=== PATIENT | female | born 1985 | race African-American/Black ===

== ENCOUNTER 2016-11-15 15:37 | Emergency (ER) | payer SELFPAY ==
[~2016-11-15] VITALS: Ht 162.6 cm; Wt 63.5 kg
[~2016-11-15 15:37] MED LIST: TRAM50TA PO
[2016-11-15 15:45] VITALS: BP 126/76
--- NOTE | 2016-11-15 16:07 | PHYS DOC ---
Past Medical History Past Medical History: Migraines Past Surgical History: No Surgical History Alcohol Use: None Drug Use: Marijuana Adult General Chief Complaint Chief Complaint: HEADACHE HPI HPI Patient is a 31 year old female presents to the emergency department with a 12 hour history of headache. She states it awakened her from sleep. It is typical of her migraine headaches and that it is global in nature. Patient states she took hydrocodone liquid, unsure of amount, that was a prescription from her friend. Patient has no visual disturbance, denies nausea, vomiting. She denies fever. She denies neck pain. Chest chest pain. Review of Systems Review of Systems Constitutional: Denies fever or chills [] Eyes: Denies change in visual acuity, redness, or eye pain [] HENT: Denies nasal congestion or sore throat [] Respiratory: Denies cough or shortness of breath [] Cardiovascular: No additional information not addressed in HPI [] GI: Denies abdominal pain, nausea, vomiting, bloody stools or diarrhea [] : Denies dysuria or hematuria [] Musculoskeletal: Denies back pain or joint pain [] Integument: Denies rash or skin lesions [] Neurologic: Headache without focal weakness or sensory change Endocrine: Denies polyuria or polydipsia [] Current Medications Current Medications Current Medications Medications (Trade) Dose Ordered Sig/Hodan Start Time Stop Time Status Last Admin Dose Admin Diphenhydramine HCl (Benadryl) 50 mg 1X ONCE 11/15/16 16:30 11/15/16 16:31 DC 11/15/16 16:11 50 MG Ketorolac Tromethamine (Toradol Im) 60 mg 1X ONCE 11/15/16 16:30 11/15/16 16:31 DC 11/15/16 16:11 60 MG Promethazine HCl (Phenergan Im) 25 mg 1X ONCE 11/15/16 16:30 11/15/16 16:31 DC 11/15/16 16:11 25 MG Allergies Allergies Allergies Coded Allergies Type Severity Reaction Last Updated Verified No Known Drug Allergies 11/19/14 No Physical Exam Physical Exam Constitutional: Well developed, well nourished, no acute distress, non-toxic appearance. [] HENT: Normocephalic, atraumatic, bilateral external ears normal, oropharynx moist, no oral exudates, nose normal. [] Eyes: PERRLA, EOMI, conjunctiva normal, no discharge, fundoscopic exam benign. [ ] Neck: Normal range of motion, no tenderness, supple, no stridor, no meningeal signs [] Cardiovascular:Heart rate regular rhythm, no murmur [] Lungs & Thorax: Bilateral breath sounds clear to auscultation [] Skin: Warm, dry, no erythema, no rash. [] Back: No tenderness, no CVA tenderness. [] Neurologic: Alert and oriented X 3, normal motor function, normal sensory function, no focal deficits noted. [] EKG EKG [] Radiology/Procedures Radiology/Procedures [] Course & Med Decision Making Course & Med Decision Making The patient presented to the emergency department with headache. The patient is now resting comfortably and feels better, is alert, talkative, interactive and in no distress. Patient appears well and is able tolerate by mouth fluids. Repeat examination is unremarkable and benign. The patient is neurologically intact, has a normal mental status and is ambulating in the ED. history and exam in the patient's current condition do not suggest meningitis, stroke, sepsis, subarachnoid hemorrhage, intracranial bleeding, encephalitis, temporal arteritis or other significant pathology toward further testing, continued ED treatment, admission, neurologic consultation or other specialist evaluation at this point. I'll signs have been stable. The patient's condition is stable and appropriate for discharge. The patient will pursue further outpatient evaluation with primary care physician or other designated or consulting physician is indicated in the discharge instructions. Pertinent Labs and Imaging studies reviewed. (See chart for details) [] Dragon Disclaimer Dragon Disclaimer This electronic medical record was generated, in whole or in part, using a voice recognition dictation system. Departure Departure Impression: Primary Impression: Headache Disposition: 01 HOME, SELF-CARE Condition: STABLE Referrals: CHANG VICTOR MD (PCP) Patient Instructions: General Headache Without Cause Additional Instructions: Follow-up with your primary care provider in one to 2 days. Return to the emergency Department for new symptoms or concerns. Problem Qualifiers Primary Impression: Headache Headache type: other headache syndrome Qualified Codes: G44.89 - Other headache syndrome CHINYERE DURAN APRN Nov 15, 2016 16:07
[2016-11-15] MEDS ORDERED: PROMETHAZINE IM 25 MG/ML VIAL IM ONE (16:30)
[2016-11-15] MEDS ORDERED: diphenhydrAMINE 50 MG/ML VIAL IM ONE (16:30)
[2016-11-15] MEDS ORDERED: KETOROLAC TROMETHAMINE 60 MG/2 ML INJ. IM ONE (16:30)
== END 2016-11-15 16:50 | disposition home or self-care (01) ==
LOC: ER 15:37
DX: G44.89 Other headache syndrome (principal); G43.909 Migraine, unspecified, not intractable, without status migrainosus; F12.10 Cannabis abuse, uncomplicated
CPT/HCPCS: 96372; 99284; J1200; J1885; J2550

== ENCOUNTER 2017-01-11 19:15 | Emergency (ER) | payer SELFPAY ==
[~2017-01-11] VITALS: Ht 167.6 cm; Wt 61.2 kg
--- NOTE | 2017-01-11 19:34 | PHYS DOC ---
Past Medical History Past Medical History: No Pertinent History, Migraines Past Surgical History: No Surgical History Alcohol Use: None Drug Use: Marijuana Adult General Chief Complaint Chief Complaint: ANKLE PROBLEM HPI HPI Patient is a 31 year old female who presents with moderate left lateral ankle pain that began this evening. Patient states she was stepping off a curb and rolled her left ankle externally. Patient states the pain is worse on weight bearing. Review of Systems Review of Systems Constitutional: Denies fever or chills [] Musculoskeletal:left lateral ankle pain Integument: Denies rash or skin lesions [] Neurologic: Denies headache, focal weakness or sensory changes [] Current Medications Current Medications Current Medications Medications (Trade) Dose Ordered Sig/Hodan Start Time Stop Time Status Last Admin Dose Admin Morphine Sulfate 5 mg 1X ONCE 01/11/17 20:45 01/11/17 20:46 DC 01/11/17 20:46 5 MG Allergies Allergies Allergies Coded Allergies Type Severity Reaction Last Updated Verified No Known Drug Allergies 11/19/14 No Physical Exam Physical Exam Constitutional: Well developed, well nourished, no acute distress, non-toxic appearance. [] Skin: Warm, dry, no erythema, no rash. [] Back: No tenderness, no CVA tenderness. [] Extremities: Left ankle with moderate soft tissue swelling medially as well as laterally. Tenderness on palpation of the lateral and medial left ankle. Full passive range of motion to the left ankle. +2 left pedal pulse. Cap refill less than 2 seconds the left toes Neurologic: Alert and oriented X 3, normal motor function, normal sensory function, no focal deficits noted. [] Psychologic: Affect normal, judgement normal, mood normal. [] Current Patient Data Vital Signs Vital Signs Date Time Temp Pulse Resp B/P (MAP) Pulse Ox O2 Delivery O2 Flow Rate FiO2 01/11/17 20:00 Room Air 01/11/17 19:27 98.4 77 18 96 98.4 EKG EKG [] Radiology/Procedures Radiology/Procedures []PROCEDURE: ANKLE LEFT 3V Three-view left ankle dated 01/11/2017. No comparison available. Clinical indication: Pain after injury. FINDINGS: 3 views left ankle show an oblique fracture through the distal fibula with fracture lines extending to the ankle mortise. There is one half shaft width lateral displacement of the distal fragment. There is also a transverse fracture through the medial malleolus. The talus is subluxed laterally relative to the distal tibia. No definite posterior malleoli or fracture. Diffuse soft tissue swelling. IMPRESSION: Bimalleolar fracture dislocation as described above. Electronically signed by: Jean Pierre Coronel MD (01/11/2017 7:43 PM) [facility] DICTATED and SIGNED BY: JEAN PIERRE CORONEL MD DATE: 01/11/171940 CC: CHANG VICTOR MD; JENY ESCALANTE APRN ~ Impressions: Indication: Left ankle fracture reduction Consent: Consent was obtained. Procedure: The pre-reduction exam showed distal perfusion and neurologic function to be normal.. The patient was placed in the appropriate position. Anesthesia/pain control with intramuscular morphine. Reduction of the left ankle was performed with direct traction. Post reduction films were obtained and revealed satisfactory reduction. A post-reduction exam revealed distal perfusion and neurologic function to be normal. The affected area was immobilized with stirrup and posterior splint The patient tolerated the procedure well. Complications: none. Course & Med Decision Making Course & Med Decision Making Pertinent Labs and Imaging studies reviewed. (See chart for details) Patient is in the ED with left ankle pain after rolling it. Left ankle x-rays interpreted by radiologist were noted for bimalleolar fracture and dislocation. Spoke with Dr. Johnson who requested we ask one of the doctors to reduce patient 's ankle splint it and do post reduction films. Dr. Alvarez took over patient's care. KIM - I took over care of patient and the joint was reduced with satisfactory results and I spoke to Dr. jeremías bach on the phone and he agreed this is reduced satisfactorily. Commended nonweightbearing and to follow in clinic later next week and come back with worsening pain swelling or other general concerns. Dragon Disclaimer Dragon Disclaimer This electronic medical record was generated, in whole or in part, using a voice recognition dictation system. Departure Departure Impression: Primary Impression: Fall from standing Additional Impression: Bimalleolar fracture of left ankle Disposition: HOME, SELF-CARE Condition: STABLE Referrals: CHANG VICTOR MD (PCP) KYM JOHNSON II, MD Call his office on Saturday and follow-up Patient Instructions: Ankle Fracture with [facility] Additional Instructions: You were seen for ankle fractures, follow-up with the provided orthopedic doctor on Saturday. Call his office and get a follow-up appointment. Ice and elevate the extremity. Scripts Ondansetron (ZOFRAN ODT) 4 Mg Tab.rapdis 4 MG PO BID Y for NAUSEA/VOMITING, #14 TAB Prov: MEGAN ALVAREZ DO 01/11/17 Oxycodone/Apap 5-325 (PERCOCET 5-325 MG TABLET) 1 Each Tablet 1 TAB PO PRN Q6HRS Y for PAIN, #30 TAB 0 Refills Prov: MEGAN ALVAREZ DO 01/11/17 Problem Qualifiers Primary Impression: Fall from standing Encounter type: initial encounter Qualified Codes: W19.XXXA - Unspecified fall, initial encounter Additional Impression: Bimalleolar fracture of left ankle Encounter type: initial encounter Fracture type: closed Qualified Codes: S82.842A - Displaced bimalleolar fracture of left lower leg, initial encounter for closed fracture JENY ESCALANTE APRN Jan 11, 2017 19:34 MEGAN ALVAREZ DO Jan 11, 2017 20:55
[2017-01-11] MEDS ORDERED: MORPHINE SULFATE 10 MG/ML VIAL. IM ONE ×2 (19:45→20:45)
--- NOTE | 2017-01-11 19:46 | RAD ---
Three-view left ankle dated 01/11/2017. No comparison available. Clinical indication: Pain after injury. FINDINGS: 3 views left ankle show an oblique fracture through the distal fibula with fracture lines extending to the ankle mortise. There is one half shaft width lateral displacement of the distal fragment. There is also a transverse fracture through the medial malleolus. The talus is subluxed laterally relative to the distal tibia. No definite posterior malleoli or fracture. Diffuse soft tissue swelling. IMPRESSION: Bimalleolar fracture dislocation as described above. Electronically signed by: Jean Pierre Coronel MD (01/11/2017 7:43 PM) [facility]
[2017-01-11 21:00] VITALS: BP 132/85
[2017-01-11] MEDS ORDERED: ONDA4TAB10 PO (21:11)
[2017-01-11] MEDS ORDERED: OXYC-323 PO (21:11)
--- NOTE | 2017-01-12 07:47 | RAD ---
Left ankle radiograph 01/11/2017 at 2040 hours Indication: Post manipulation/reduction Comparison: Left ankle radiograph 01/11/2017 at 1928 hours Technique: 3 views of the left ankle are provided. Findings: Fiberglass cast limits fine osseous detail. There is improved alignment of fractures involving the medial and lateral malleoli. Improved congruence of the ankle mortise. Impression: Interval reduction of medial and lateral malleolar fractures with improved alignment.
== END 2017-01-11 21:26 | disposition home or self-care (01) ==
LOC: ER 19:15
DX: S82.842A Displaced bimalleolar fracture of left lower leg, initial encounter for closed fracture (principal); G43.909 Migraine, unspecified, not intractable, without status migrainosus; W18.39XA Other fall on same level, initial encounter; Y93.89 Activity, other specified; Y92.89 Other specified places as the place of occurrence of the external cause; Y99.8 Other external cause status
CPT/HCPCS: 27810; 73610; 96372; 99284; J2270

== ENCOUNTER 2017-02-04 08:44 | Day surgery (SDC) | payer SELFPAY ==
[~2017-02-04] VITALS: Ht 162.6 cm; Wt 63.5 kg
[~2017-02-04 08:44] MED LIST changes: +BUPIVACAINE MPF 0.5% 30 ML VIAL. ONE; +IBUP-1027 PO; +IV RINGERS,LACTATED 1000ML 1,000 ML IV SCH; +LIDOCAINE 1% PF 2 ML VIAL. ID PRN; +LIDOCAINE 1% PF 30 ML VIAL. ONE; +LIDOCAINE 2% PF Vial for OR 5 ML VIAL. ONE; +ONDA4TAB10 PO; +ONDANSETRON PF 4 MG/2 ML VIAL. IV PRN; +OXYC-323 PO; +PROCHLORPERAZINE 10 MG/2 ML VIAL. IV PRN; +PROPOFOL 20 ML IV ONE; +fentaNYL PF VIAL 100 MCG/2 ML VIAL IV PRN; +fentaNYL PF VIAL 100 MCG/2 ML VIAL ONE
[2017-02-04 09:36] LABS: NEG OBC UR NEG; POS OBC UR POS
--- NOTE | 2017-02-04 09:37 | DISCH ---
DISCHARGE INSTRUCTIONS Condition on Discharge Condition on Discharge: Stable Activity After Discharge Activity Instructions for Disc: Other, see below Bathing Instructions: Shower-keep dressing dry Weight Bearing Status after Di: Non weight bearing Diet after Discharge Diet after Discharge: Regular Wound Incision Care Wound/Incision Care: Ice to area for comfort, Keep wound/cast CDI, Keep wound elevated, Do not change dressing Other wound/incision instructi: leave splint in place Contacting the DR. after DC Call your doctor for: Concerns you may have Follow-Up Follow up with: Michael in 2wks KYM JOHNSON II, MD Feb 04, 2017 09:36
--- NOTE | 2017-02-04 09:38 | PDOC ---
BRIEF OPERATIVE NOTE Date: Feb 04, 2017 Pre-Op Diagnosis Closed Left bimall ankle fracture Post-Op Diagnosis same Procedure Performed ORIF R ankle fracture, bimalleolar Surgeon Michael Nielsen Anesthesia Type: General, Local Blood Loss see op report Complications none KYM JOHNSON II, MD Feb 04, 2017 09:38
[2017-02-04] MEDS ORDERED: SEVOFLURANE 31 TO 60 MINUTES. IH ONE (10:20)
[2017-02-04] MEDS ORDERED: DEXAMETHASONE SOD PHOS 20 MG/5 ML VIAL. ONE (10:20)
[2017-02-04] MEDS ORDERED: ONDANSETRON PF 4 MG/2 ML VIAL. ONE (10:38)
[2017-02-04] MEDS ORDERED: KETOROLAC 30 MG/ML INJ FOR OR. INJ ONE (10:38)
[2017-02-04] MEDS ORDERED: fentaNYL PF VIAL 100 MCG/2 ML VIAL ONE (11:27)
[2017-02-04] MEDS: fentaNYL PF VIAL 100 MCG/2 ML VIAL IV PRN ×2 (11:50→12:09)
--- NOTE | 2017-02-04 12:01 | RAD ---
Indication ORIF of ankle fracture. For members of the department of orthopedic surgery fluoroscopy was provided. 3. Spot fluoroscopic images of the left ankle were obtained. Previously identified fractures have been internally fixed with orthopedic hardware. No unexpected finding is seen. Fluoroscopy time associated with the imaging has been indicated as 39 seconds
[2017-02-04] MEDS: MORPHINE SULFATE 2 MG/ML DISP.SYRIN. IV PRN ×2 (12:02→12:19)
[2017-02-04] MEDS: HYDROmorphone 2 MG/ML VIAL IV PRN ×4 (12:31→13:09)
[2017-02-04] MEDS ORDERED: oxyCODONE/APAP 5/325 1 TAB TABLET ONE (13:10)
[2017-02-04] MEDS ORDERED: oxyCODONE/APAP 5/325 1 TAB TABLET PO ONE (13:15)
--- NOTE | 2017-02-04 13:18 | OP ---
DATE OF SURGERY: 02/04/2017 SURGEON: Reinaldo Johnson M.D. MOLECULAR GENETIC PATHOLOGIST: Kel Nielsen. ANESTHESIA: General plus local. PREOPERATIVE DIAGNOSIS: Closed left bimalleolar ankle fracture dislocation. POSTOPERATIVE DIAGNOSIS: Closed left bimalleolar ankle fracture dislocation. PROCEDURE PERFORMED: Open reduction and internal fixation of the left bimalleolar ankle fracture. COMPONENTS INSERTED: 1. [employer] 5-hole left distal fibula locking plate. 2. A single 4.0 mm cannulated screw from medial malleolus. COMPLICATIONS: None. ESTIMATED BLOOD LOSS: 15 mL. TOURNIQUET TIME: 47 minutes. REASON FOR PROCEDURE: The patient is a very pleasant 31-year-old female who sustained a twisting injury to her ankle, was seen in our Emergency Department and sent to myself for definitive management. Please see my outpatient note for further details. Given the nature of her injury, I had discussion of the risks, benefits and alternatives to proceeding with operative intervention and she elected to proceed. DESCRIPTION OF PROCEDURE: The patient was greeted in the preoperative area by myself, where the correct extremity was marked and verified. She was taken to the operative suite and antibiotics were started en route. Once in the OR, she was transferred gently supine on the OR table and secured to the bed with all pressure points padded. Nonsterile tourniquet taped in place to her left thigh. We had placed a large bump under her left hip. After this, I exsanguinated her extremity with an Esmarch and insufflated the tourniquet to 250 mmHg. We conducted our standard preoperative timeout. We palpated the marked surface anatomy and made a straight lateral incision over her distal fibula and incised the skin with a scalpel and dissected the subcutaneous tissue with Metzenbaum. I identified her distal fibula and used periosteal elevator to remove the periosteum it more fully exposed the fracture site. I used dental pick, small curette and metal tip sucker to debride the fracture site. She had a comminuted piece of her posterolateral distal fibula distal to the fracture site. After debriding the fracture site of early soft callus, I then proceeded to reduce her ankle fracture with combination of internal rotation at her foot and direct pressure over her fracture with assistance of a [id number] reduction clamp. After achieving an adequate reduction, provisionally I placed a plate in this bone and took my x-rays and was happy with the hardware position and fracture alignment. Therefore, I placed a single nonlocking screw proximally in the fracture to hold it in place. I then placed a nonlocking screw distal to the fracture site. I then placed 2 more nonlocking screws proximal to the fracture site. I then placed 2 locking screws distal to the fracture site and traded out my initial nonlocking screw for a locking screw as well. I then directed my attention to making a curvilinear incision over the medial malleolus fractures. I incised the skin with a scalpel and dissected subcutaneous tissue with Metzenbaum until I encountered the fracture site. I used the periosteal elevator to more fully expose the fracture site. I used again a small curette, dental pick and a metal tip sucker to debride the fracture site. I then irrigated out the ankle joint. After this, I used dental pick to help facilitate a better reduction at the fracture and took a couple attempts using the fluoroscopy to guide me and then I advanced a guide pin. After this, I placed another guide pin, but looking at the fracture and orientation, there was not room for 2 screws. I left the second guide pin in place help control rotation, though I just placed one screw. I drilled the near cortex and then measured and placed my screw under hand power. I then took AP, oblique and lateral of her ankle and I was happy with the fracture reduction and hardware position. After this, I performed an external rotation stress test, which was negative. We then irrigated out the incisions and let the tourniquet down. There was some venous bleeding that was cauterized and some oozing from the fracture site, but nothing too great. I then closed the fascia down deep laterally with simple interrupted #1 Vicryl. Inverted interrupted 2-0 was used for subcutaneous tissue medially and laterally. A 2-0 nylon in a mattress fashion was used for skin medially and laterally. Prior to completion of wound closure, all counts were reported correct x 2. No complications. At the conclusion of closing the skin, I injected about 10 mL of local anesthetic mixture into the pippa-incisional areas. The leg was then cleansed and dried and Steri-Strips, Xeroform, sterile gauze and ABD laterally, where I then applied and held in place with a sterile soft roll. We then fashioned a well-padded AO splint with foot plate. After allowing this to harden, she was then awakened fully and we transferred gently supine to the recovery room cart. Postop plan is to discharge her home. She will be nonweightbearing on the left lower extremity. She will follow up with me in 2 weeks, sooner should a problem arise. REINALDO JOHNSON MD DR: NASREEN/chidi JOB#: [id number] / [id number] DEANNA
[2017-02-04 13:43] VITALS: BP 115/71
== END 2017-02-04 14:11 | disposition home or self-care (01) ==
LOC: SURG 08:44
PROVIDERS: ATTEND Orthopaedic Surgery Sports Medicine
DX: S82.842A Displaced bimalleolar fracture of left lower leg, initial encounter for closed fracture (principal); X58.XXXA Exposure to other specified factors, initial encounter; Y93.89 Activity, other specified; Y92.89 Other specified places as the place of occurrence of the external cause; Y99.8 Other external cause status; D64.9 Anemia, unspecified; Z87.440 Personal history of urinary (tract) infections; Z87.39 Personal history of other diseases of the musculoskeletal system and connective tissue; Z72.0 Tobacco use
CPT/HCPCS: 27814; 76000; 81025; A4215; J0690; J0780; J1100; J1170; J1885; J2270; J2405; J2704; J3010; J3490; J2001

== ENCOUNTER → 2017-05-28 | Outpatient (CLI) | payer OTHER | END | disposition home or self-care (01) | LOC: RAD 08:04 | DX: S82.842D Displaced bimalleolar fracture of left lower leg, subsequent encounter for closed fracture with routine healing (principal); X58.XXXD Exposure to other specified factors, subsequent encounter | CPT/HCPCS: 73610 ==

== ENCOUNTER 2018-02-12 05:55 | Emergency (ER) | payer OTHER ==
[~2018-02-12] VITALS: Ht 170.2 cm; Wt 63.5 kg
[~2018-02-12 05:55] MED LIST changes: -BUPIVACAINE MPF 0.5% 30 ML VIAL. ONE; -IV RINGERS,LACTATED 1000ML 1,000 ML IV SCH; -LIDOCAINE 1% PF 2 ML VIAL. ID PRN; -LIDOCAINE 1% PF 30 ML VIAL. ONE; -LIDOCAINE 2% PF Vial for OR 5 ML VIAL. ONE; -ONDANSETRON PF 4 MG/2 ML VIAL. IV PRN; -PROCHLORPERAZINE 10 MG/2 ML VIAL. IV PRN; -PROPOFOL 20 ML IV ONE; -fentaNYL PF VIAL 100 MCG/2 ML VIAL IV PRN; -fentaNYL PF VIAL 100 MCG/2 ML VIAL ONE
--- NOTE | 2018-02-12 06:33 | PHYS DOC ---
Past Medical History Past Medical History: No Pertinent History, Migraines Past Surgical History: Other Additional Past Surgical Histo: LEFT ANKLE FX Alcohol Use: None Drug Use: Marijuana Adult General Chief Complaint Chief Complaint: BACK PAIN - NO INJURY HPI HPI 42-year-old female presenting to the emergency department with low back pain that started yesterday. She's taken ibuprofen with mild relief. The pain is a sharp shooting pain that is mild and radiates through the low back. She denies any fevers chills dysuria polyuria. She denies weakness numbness tingling. Review of systems is negative for chest pain shortness of breath fevers chills weakness in the legs or urinary incontinence or fecal incontinence. All other review of systems is negative. ED course: 32-year-old female presenting the emergency department today with low back pain without any recent trauma. Unremarkable examination. Urinalysis obtained. Unfortunately due to the amount of blood in the urine the lab was unable to perform the analysis for signs of infection. We will initiate the patient on oral antibiotics given the limitations of the urine analysis. We will refer the patient to physical therapy in the next 4 days along with ibuprofen and Tylenol for pain.The patient has been examined and was not found to have an emergency medical condition. The patient was then discharged home in stable condition to follow up with their primary care physician over the next 2- 3 days. They were to return if their symptoms worsened or if they were concerned for any reason. They were also instructed to return to the emergency department if they were unable to get the recommended and appropriate follow- up. [id number] discharge instructions and return precautions were given. Patient's questions were answered to their satisfaction. Patient is comfortable with plan. Allergies Allergies Allergies Coded Allergies Type Severity Reaction Last Updated Verified No Known Drug Allergies 02/04/17 No Physical Exam Physical Exam Constitutional: Well developed, well nourished, no acute distress, non-toxic appearance. [] HENT: Normocephalic, atraumatic, bilateral external ears normal, oropharynx moist, no oral exudates, nose normal. [] Eyes: PERRLA, EOMI, conjunctiva normal, no discharge. [] Neck: Normal range of motion, no tenderness, supple, no stridor. [] Cardiovascular:Heart rate regular rhythm, no murmur [] Lungs & Thorax: Bilateral breath sounds clear to auscultation [] Abdomen: Bowel sounds normal, soft, no tenderness, no masses, no pulsatile masses. [] Skin: Warm, dry, no erythema, no rash. [] Back: No tenderness, no CVA tenderness. [] Extremities: No tenderness, no cyanosis, no clubbing, ROM intact, no edema. [] Neurologic: Alert and oriented X 3, normal motor function, normal sensory function, no focal deficits noted. [] Psychologic: Affect normal, judgement normal, mood normal. [] Current Patient Data Vital Signs Vital Signs Date Time Temp Pulse Resp B/P (MAP) Pulse Ox O2 Delivery O2 Flow Rate FiO2 02/12/18 06:00 98.9 78 20 107/63 (78) 98 Room Air 98.9 Lab Values Laboratory Tests Test 02/12/18 06:10 02/12/18 06:19 Urine Collection Type Unknown Urine Color Red Urine Clarity Bloody Urine pH Urine Specific [place] 1.025 Urine Protein mg/dL (NEG-TRACE) Urine Glucose (UA) mg/dL (NEG) Urine Ketones (Stick) mg/dL (NEG) Urine Blood (NEG) Urine Nitrite (NEG) Urine Bilirubin (NEG) Urine Urobilinogen Dipstick mg/dL (0.2 mg/dL) Urine Leukocyte Esterase (NEG) Urine RBC Tntc /HPF (0-2) Urine WBC 0 /HPF (0-4) Urine Squamous Epithelial Cells Mod /LPF Urine Bacteria 0 /HPF (0-FEW) Urine Mucus Mod /LPF POC Urine HCG, Qualitative Hcg negative (Negative) EKG EKG [] Radiology/Procedures Radiology/Procedures [] Course & Med Decision Making Course & Med Decision Making Pertinent Labs and Imaging studies reviewed. (See chart for details) [] Dragon Disclaimer Dragon Disclaimer This electronic medical record was generated, in whole or in part, using a voice recognition dictation system. Departure Departure Impression: Primary Impression: Low back pain Disposition: HOME, SELF-CARE Condition: STABLE Referrals: CHANG VICTOR MD (PCP) Patient Instructions: Back Exercises, Back Pain, Adult, [place] Additional Instructions: Thank you for allowing us to participate in your care today. Return to the emergency department you have any new or worsening symptoms, or if you are concerned for any reason. Return to emergency department if you have any new or concerning symptoms including but not limited to fever, chills, nausea, vomiting, intractable pain, any new rashes, chest pain, shortness of air , uncontrolled bleeding, difficulty breathing, and/or vision loss. Follow up with your primary care physician within 3 days and I am referring you to a physical therapist in 4 days. Please call to make that appointment. Call your Primary Doctor tomorrow and inform them of your visit today. If you do not have a primary care provider we are happy to provide you with a list of our primary care providers contact information. This condition should be evaluated by your primary care physician and any recommended consulting services for continued management within 2-3 days after discharge. If at any time, you are having difficulty getting into your primary care doctor or a specialist, return to the emergency department. SARAI KHAN MD Feb 12, 2018 06:33
[2018-02-12 07:30] VITALS: BP 135/80
[2018-02-12 07:46] LABS: CLARITY,URINE BLOODY; COLOR,URINE RED
[2018-02-12 07:50] LABS: RBC,URINE TNTC /HPF (0-2); SQUAMOUS EPITHELIAL CELL,UR MOD /LPF
[2018-02-12 07:51] LABS: BACTERIA,URINE 0 /HPF (0-FEW); WBC,URINE 0 /HPF (0-4)
== END 2018-02-12 08:15 | disposition home or self-care (01) ==
LOC: ER 05:55
DX: M54.5 Low back pain (principal); G43.909 Migraine, unspecified, not intractable, without status migrainosus
CPT/HCPCS: 81001; 81025; 99283

== ENCOUNTER 2018-07-03 12:26 | Emergency (ER) | payer OTHER ==
[~2018-07-03] VITALS: Ht 165.1 cm; Wt 63.5 kg
[~2018-07-03 12:26] MED LIST changes: -OXYC-323 PO; +OXYC1TAB15 PO
[2018-07-03 12:55] VITALS: BP 132/68
[2018-07-03] MEDS ORDERED: ALBUTEROL SULFATE 2.5 MG/3 ML NEBU. NEB ONE (13:30)
[2018-07-03] MEDS ORDERED: ACETAMINOPHEN 500 MG TABLET PO ONE (14:00)
[2018-07-03 14:09] LABS: INFLUENZA A PATIENT NEGATIVE (NEGATIVE); INFLUENZA B PATIENT NEGATIVE (NEGATIVE)
[2018-07-03] MEDS ORDERED: BENZ100C PO (14:21)
[2018-07-03] MEDS ORDERED: ALBU2.5V8 INH (14:21)
--- NOTE | 2018-07-03 14:21 | PHYS DOC ---
Past Medical History Past Medical History: No Pertinent History, Migraines Past Surgical History: , Other Additional Past Surgical Histo: LEFT ANKLE FX Alcohol Use: None Drug Use: Marijuana Adult General Chief Complaint Chief Complaint: SORE THROAT HPI HPI Patient is a 33 year old AA female who presents to the emergency room accompanied by her fianc, with complaints of headache, sore throat, bodyaches, low back pain, chills, tactile fever, fatigue, and dry cough. Patient states the symptoms began yesterday. Currently she reports her generalized pain a 9/10 on the pain scale, she denies any alleviating or aggravating factors. Patient also denies any wheezing or shortness of breath. Review of Systems Review of Systems Constitutional: see HPI Eyes: Denies changes HENT: reports nasal congestion and sore throat [] Respiratory: Denies wheezing or shortness of breath ; reports dry cough[] Cardiovascular: No additional information not addressed in HPI [] GI: Denies abdominal pain, nausea, vomiting, or diarrhea [] : Denies dysuria or hematuria [] Musculoskeletal: reports generalized bodyaches Integument: Denies rash or skin lesions [] Neurologic: Denies focal weakness or sensory changes [] Current Medications Current Medications Current Medications Medications (Trade) Dose Ordered Sig/Hodan Start Time Stop Time Status Last Admin Dose Admin Acetaminophen (Tylenol) 1,000 mg 1X ONCE 07/03/18 14:00 07/03/18 14:01 DC 07/03/18 14:10 1,000 MG Albuterol Sulfate (Ventolin Neb Soln) 2.5 mg 1X ONCE 07/03/18 13:30 07/03/18 13:31 DC 07/03/18 13:51 2.5 MG Allergies Allergies Allergies Coded Allergies Type Severity Reaction Last Updated Verified No Known Drug Allergies 02/04/17 No Physical Exam Physical Exam Constitutional: Well developed, well nourished, no acute distress, ill appearance. [] HENT: Normocephalic, atraumatic, bilateral external ears normal, oropharynx moist, no oral exudates, nose normal. [] Eyes: PERRLA, EOMI, conjunctiva normal, no discharge. [] Neck: Normal range of motion, no tenderness, supple, no stridor. [] Cardiovascular:Heart rate regular rhythm, no murmur [] Lungs & Thorax: Bilateral breath sounds clear to auscultation , diminish posteriorly in bases bilateral[] Skin: Warm, dry, no erythema, no rash. [] Extremities: No cyanosis, ROM intact, no edema. [] Neurologic: Alert and oriented X 3, no focal deficits noted. [] Psychologic: Affect normal, judgement normal, mood normal. [] Current Patient Data Vital Signs Vital Signs Date Time Temp Pulse Resp B/P (MAP) Pulse Ox O2 Delivery O2 Flow Rate FiO2 07/03/18 13:53 Room Air 07/03/18 12:55 99.5 71 16 132/68 (89) 100 99.5 Lab Values Laboratory Tests Test 07/03/18 13:35 Influenza Type A Antigen Negative (NEGATIVE) Influenza Type B Antigen Negative (NEGATIVE) EKG EKG [] Radiology/Procedures Radiology/Procedures [] Course & Med Decision Making Course & Med Decision Making Pertinent Labs and Imaging studies reviewed. (See chart for details) dx: flulike symptoms, URI, drug-seeking behavior influenza testing was negative. Patient was given a breathing treatment in the emergency department lung sounds improved. Patient also given 1 g of Tylenol for pain. Prescriptions written for Tessalon pearls and an albuterol inhaler. Patient upset that no pain medication was prescribed. Advised patient that she may take Tylenol or a provision is needed for pain. Follow-up primary care DrUna symptoms persist, return to the year symptoms worsen. [] Dragon Disclaimer Dragon Disclaimer This electronic medical record was generated, in whole or in part, using a voice recognition dictation system. Departure Departure Impression: Primary Impression: Flu-like symptoms Additional Impressions: URI with cough and congestion Drug-seeking behavior Disposition: 01 HOME, SELF-CARE Condition: STABLE Referrals: CHANG VICTOR MD (PCP) Patient Instructions: Upper Respiratory Infection, Adult, [id number] Additional Instructions: Fill prescription(s) and use as directed. Recommend use of a Cool mist humidifier in room at bedtime. Alternate Tylenol or ibuprofen as needed for pain /fever. Increase clear fluids. Avoid airway triggers such as smoke, fragrance, dust, and pollen. Follow-up with your primary care doctor symptoms persist, return to the ER symptoms worsen. Scripts Albuterol Sulfate (Proair Hfa) 8.5 Gm Hfa.aer.ad 2 PUFF INH PRN Q6HRS PRN for SHORTNESS OF BREATH for 10 Days, #1 INHALER 0 Refills Prov: ASHLEIGH ZIMMERMAN APRN 07/03/18 Benzonatate (TESSALON PERLE) 100 Mg Capsule 100 MG PO TID PRN for COUGH for 7 Days, #21 CAP 0 Refills Prov: ASHLEIGH ZIMMERMAN APRN 07/03/18 Problem Qualifiers ASHLEIGH ZIMMERMAN APRN Jul 03, 2018 14:21
== END 2018-07-03 14:24 | disposition home or self-care (01) ==
LOC: ER 12:26
DX: J06.9 Acute upper respiratory infection, unspecified (principal); G43.909 Migraine, unspecified, not intractable, without status migrainosus
CPT/HCPCS: 87804; 94640; 99283; J7613